=== PATIENT | male | born 1960 | race Caucasian/White ===

== ENCOUNTER 2016-07-26 18:35 | Emergency (ER) | payer BC ==
[2016-07-26 19:34] VITALS: BP 125/73
[2016-07-26] MEDS ORDERED: Albuterol 2.5 MG/3 ML NEB.SOL* (0.083%) INH ONE (20:08)
[2016-07-26] MEDS ORDERED: Ipratropium 0.5MG/2.5ML NEB* 0.5 MG/2.5 ML NEB.SOLN INH ONE (20:09)
--- NOTE | 2016-07-26 20:49 | UC ---
Respiratory Complaint HPI - HPI Summary HPI Summary: pt presents c/o worsening cough chest, congestion , sob, and wheezing. - History of Current Complaint Chief Complaint: UCRespiratory Stated Complaint: BRONCHITIS Time Seen by Provider: 07/26/16 19:54 Hx Obtained From: Patient Onset/Duration: Gradual Onset, Lasting Weeks Timing: Constant Severity Initially: Mild Severity Currently: Moderate Character: Cough: Nonproductive Aggravating Factors: Deep Breaths, Recumbent Position Alleviating Factors: Bronchodilator Associated Signs And Symptoms: Positive: Wheezing, URI - Allergies/Home Medications Allergies/Adverse Reactions: Allergies Allergy/AdvReac Type Severity Reaction Status Date / Time Doxycycline Allergy Rash And Verified 07/26/16 19:24 Itching Prednisone Allergy See Comment Verified 07/26/16 19:24 Codeine AdvReac Headache Verified 07/26/16 19:24 PMH/Surg Hx/FS Hx/Imm Hx Previously Healthy: Yes - Surgical History Surgical History: None - Family History Known Family History: Positive: Cardiac Disease - Social History Alcohol Use: None Substance Use Type: None Smoking Status (MU): Former Smoker When Did the Patient Quit Smoking/Using Tobacco: 1.5 YRS AGO - Immunization History Most Recent Influenza Vaccination: NONE Most Recent Tetanus Shot: UTD Most Recent Pneumonia Vaccination: N/A Review of Systems Constitutional: Fatigue Skin: Negative Eyes: Negative ENT: Other - nasal congestion Respiratory: Shortness Of Breath, Cough, Other - wheezing Cardiovascular: Negative Gastrointestinal: Negative Genitourinary: Negative Motor: Negative Neurovascular: Negative Musculoskeletal: Negative Neurological: Negative Psychological: Negative All Other Systems Reviewed And Are Negative: Yes Physical Exam Triage Information Reviewed: Yes Appearance: Ill-Appearing Vital Signs: Initial Vital Signs Temp 98.7 F 07/26/16 19:25 Pulse 91 07/26/16 19:25 Resp 16 07/26/16 19:25 BP 125/73 07/26/16 19:25 Pulse Ox 97 07/26/16 19:25 Eye Exam: Normal ENT Exam: Other ENT: Positive: Nasal congestion Neck exam: Normal Respiratory Exam: Other Respiratory: Positive: Decreased breath sounds - bilateral bases, Wheezing Cardiovascular Exam: Normal Musculoskeletal Exam: Normal Neurological Exam: Normal Psychological Exam: Normal Skin Exam: Normal UC Diagnostic Evaluation - Laboratory O2 Sat by Pulse Oximetry: 97 Respiratory Course/Dx - Differential Dx/Diagnosis Differential Diagnosis/HQI/PQRI: Asthma, Bronchitis Provider Diagnoses: bronchitis. asthma? COPD? Discharge - Discharge Plan Condition: Stable Disposition: HOME Prescriptions: Albuterol HFA INHALER* [Ventolin HFA Inhaler*] 2 puff INH Q4H PRN #1 mdi PRN Reason: Sob/Wheezing Azithromycin TAB* [Zithromax TAB (Z-DAMON) 250 mg #6 tabs] 250 mg PO DAILY #4 tab Montelukast Sodium TAB* [Singulair TAB*] 10 mg PO BEDTIME #30 tab Patient Education Materials: Acute Bronchitis (ED) Referrals: Hernan Lugo MD [Primary Care Provider] - 2 Days
--- NOTE | 2016-07-26 20:50 | RAD ---
Indication: Cough, shortness of breath. 2 views the chest including dual energy PA views demonstrate no mediastinal shift. Heart is of normal size and configuration. Lung robertson are clear. IMPRESSION: No active cardiopulmonary disease is noted.
[2016-07-26] MEDS ORDERED: Azithromycin TAB* 250 MG PO ONE (20:55)
[2016-07-26] MEDS ORDERED: Benzonatate CAP* 100 MG PO ONE (20:55)
== END 2016-07-26 21:15 | disposition home or self-care (01) ==
LOC: UCCORT 18:35
DX: J40 Bronchitis, not specified as acute or chronic (principal); Z88.1 Allergy status to other antibiotic agents; Z88.5 Allergy status to narcotic agent; Z88.8 Allergy status to other drugs, medicaments and biological substances; Z87.891 Personal history of nicotine dependence
CPT/HCPCS: 71020; 99213; A9270-GY; G0463; J7644

== ENCOUNTER 2017-03-14 12:57 | Emergency (ER) | payer BC ==
[2017-03-14 16:06] VITALS: BP 123/69
--- NOTE | 2017-03-14 16:11 | UC ---
HPI Febrile Illness - HPI Summary HPI Summary: sore throat, cough, high fever since last night. took advil today - History of Current Complaint Chief Complaint: UCRespiratory Time Seen by Provider: 03/14/17 15:58 Hx Obtained From: Patient Timing: Constant Initial Severity: Mild Current Severity: Moderate Associated Signs and Symptoms: Cough - Allergy/Home Medications Allergies/Adverse Reactions: Allergies Allergy/AdvReac Type Severity Reaction Status Date / Time Doxycycline Allergy Rash And Verified 03/14/17 15:58 Itching Prednisone Allergy See Comment Verified 03/14/17 15:58 Codeine AdvReac Headache Verified 03/14/17 15:58 PMH/Surg Hx/FS Hx/Imm Hx Previously Healthy: Yes - Surgical History Surgical History: None - Family History Known Family History: Positive: Cardiac Disease - Social History Alcohol Use: None Substance Use Type: None Smoking Status (MU): Former Smoker When Did the Patient Quit Smoking/Using Tobacco: 1.5 YRS AGO - Immunization History Most Recent Influenza Vaccination: NONE Most Recent Tetanus Shot: UTD Most Recent Pneumonia Vaccination: N/A Review of Systems Constitutional: Fever, Chills Skin: Negative Eyes: Negative ENT: Sore Throat - nonprod Respiratory: Cough Gastrointestinal: Negative Genitourinary: Negative Musculoskeletal: Myalgia - hx back pain Is Patient Immunocompromised?: No All Other Systems Reviewed And Are Negative: Yes Physical Exam Triage Information Reviewed: Yes Appearance: Ill-Appearing Vital Signs Reviewed: Yes ENT Exam: Normal Respiratory: Positive: Decreased breath sounds - in bases Cardiovascular Exam: Normal Neurological Exam: Normal Psychological Exam: Normal Skin Exam: Normal Course/Dx - Course Course Of Treatment: ibuprofen or tylenol every 4-6 hours prn pain/fever. rapid strep done - results negative but physical exam shows + exudate/raw throat. increase fluid intake daily to prevent dehydration from abx. f/u pcp 1 week if symptoms not resolving - Diagnoses Clinic Provider Diagnoses: strep throat Discharge - Discharge Plan Condition: Fair Disposition: HOME Prescriptions: Amoxicillin PO (*) [Amoxicillin 875 MG (*)] 875 mg PO BID 10 Days #20 tab Patient Education Materials: Sinusitis (ED), Strep Throat (ED) Referrals: Hernan Lugo MD [Primary Care Provider] - 1 Week
== END 2017-03-14 16:53 | disposition home or self-care (01) ==
LOC: UCCORT 12:57
DX: Z87.891 Personal history of nicotine dependence (principal); J02.0 Streptococcal pharyngitis
CPT/HCPCS: 87651; 99212; G0463

== ENCOUNTER 2018-05-12 15:56 | Emergency (ER) | payer BC ==
--- OUTSIDE RECORDS SUMMARY | 2018-05-12 16:07 | XMS REPORT | Continuity of Care Document ---
:1960 External Reference #:[id number] Author Name Tess Paige PA Address [address] [place] [address] Care Team Providers Name Role Phone Hernan Lugo MD Care Team Information Sanitation Associate Unavailable Hernan Lugo MD Primary Care Physician Unavailable Payers Date Identification Numbers Payment Provider Subscriber Effective: 2012 Policy Number: [id number] [facility] [employer] Yuli Islas PayID: [id number] [address] [address] [place] [address] Advance Directives Description No Information Available Problems Date Description Provider Status Onset: 12/26/2006 Pure hypercholesterolemia Hernan Lugo MD Active Onset: 12/22/2006 External hemorrhoids without Hernan Lugo MD Active complication Onset: 12/22/2006 Tobacco user Hernan Lugo MD Active Onset: 12/22/2006 FH: Diabetes mellitus Hernan Lugo MD Active Onset: 05/24/2017 Mild persistent asthma Hernan Lugo MD Active Onset: 05/06/2016 Mild intermittent asthma Hernan Lugo MD Active Onset: 09/03/2014 Intrinsic asthma without status Hernan Lugo MD Active asthmaticus Family History Date Family Member(s) Observation Comments Father DM2 Father Lung cancer D- 2013 Social History Type Date Description Comments Sex Unknown Marital Status 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 Tobacco Use Start: Unknown End: Patient is a former smoker 2 Packs Daily - smoked Unknown 2 -21/2 ppd for 30 years, quit Jan 2012; QUIT 2013 Smoking Status Reviewed: 02/22/11 Patient is a former smoker 2 Packs Daily - smoked 2 -21/2 ppd for 30 years, quit Jan 2012; QUIT 2013 Allergies, Adverse Reactions, Alerts Date Description Reaction Status Severity Comments 12/22/2006 Codeine Active Medications Medication Date Status Form Strength Qnty SIG Indications Ordering Provider Qvar Redihaler 05/02/ Active Aerosol 80mcg/Act 8.700 1 puff once J45.30 Cummins, 2019 gm a day joann Francis DO Tylenol 09/03/ Active Tablets 325mg 60tab 2 tabs 4 Digiovann 2015 s times daily a, as needed MD Hernan Proair HFA 06/14/ Active Aerosol 108(90Bas 25.5u inhale two J45.30 Digiovann 2015 e) nits puffs by a, mcg/Act mouth every Hernan, 3 hours as MD needed Ibuprofen 07/10/ Active Tablets 200mg 2 po tid prn Digiovann 2008 Hernan mcginnis MD Qvar 05/24/ Hx Aerosol 80mcg/Act 8.700 1 puff once J45.30 Digiovann 2018 - gm a day a, 05/02/ routinely Kali Becerra MD Doxycycline 07/08/ Hx Capsules 100mg 20cap 1 pill by Lucille Digiovann Monohydrate 2017 - s mouth twice a, 07/18/ a day with Salvador Becerra food for 10 MD days Azithromycin 06/22/ Hx Tablets 250mg 6tabs 2 tablets by Lucille Paige 2016 - mouth on day Tess, then 1 PA 2018 tablet on days 2-5 Hydrocortisone 12/22/ Hx Cream 2.5% 1unit apply pr qid Digiovann 2007 - s prn a, 02/03/ hemorrhoids Hernan Mobley MD Immunizations CPT Code Status Date Vaccine Lot # [id number] Given 09/03/2014 Tetanus And Diptheria Toxoids For Adult [id number] Use-preservative free [id number] Refused 05/24/2017 Afluria Imunization Vital Signs Date Vital Result Comment 05/02/2018 3:01pm Weight 183.00 lb Heart Rate 78 /min BP Systolic 138 mmHg BP Diastolic 78 mmHg Respiratory Rate 18 /min Height 70.5 inches 5'10.50" BMI (Body Mass Index) 25.9 kg/m2 05/24/2017 3:38pm Weight 183.00 lb Heart Rate 72 /min BP Systolic 120 mmHg BP Diastolic 80 mmHg Respiratory Rate 18 /min Height 70.5 inches 5'10.50" BMI (Body Mass Index) 25.9 kg/m2 06/22/2016 1:31pm Body Temperature 98.0 F Weight 195.00 lb Heart Rate 98 /min Respiratory Rate 20 /min Height 70 inches 5'10"06/22/16 O2 % BldC Oximetry 93 % BMI (Body Mass Index) 28.0 kg/m2 05/06/2016 2:20pm Weight 192.00 lb Heart Rate 74 /min BP Systolic 130 mmHg BP Diastolic 80 mmHg Respiratory Rate 18 /min Height 70 inches 5'10" BMI (Body Mass Index) 27.5 kg/m2 09/03/2014 2:24pm Weight 183.00 lb Heart Rate 84 /min BP Systolic 144 mmHg L/Reg BP Diastolic 90 mmHg L/Reg BP Systolic Recheck 118 mmHg L at rest BP Diastolic Recheck 80 mmHg L at rest Respiratory Rate 20 /min Height 70 inches 5'10" O2 % BldC Oximetry 92 % Ra BMI (Body Mass Index) 26.3 kg/m2 05/24/2013 2:40pm BP Systolic 140 mmHg BP Diastolic 84 mmHg 05/24/2013 2:40pm Body Temperature 98.2 F Weight 183.00 lb Heart Rate 84 /min BP Systolic 146 mmHg BP Diastolic 90 mmHg Respiratory Rate 18 /min Height 69.75 inches 5'9.75" O2 % BldC Oximetry 95 % 07/10/2008 2:23pm BP Systolic 128 mmHg L repeat BP Diastolic 84 mmHg L repeat 07/10/2008 2:23pm Weight 174.00 lb Heart Rate 84 /min BP Systolic 150 mmHg L/LG BP Diastolic 78 mmHg L/LG Respiratory Rate 10 /min Height 69.6 inches 5'9.60" 12/22/2006 9:30am BP Systolic 126 mmHg L seated BP Diastolic 80 mmHg L seated 12/22/2006 9:30am Weight 180.12 lb Heart Rate 82 /min BP Systolic 130 mmHg L/LG BP Diastolic 90 mmHg L/LG Respiratory Rate 12 /min Height 70.2 inches 5'10.20" Results Test Date Facility Test Result H/L Range Note Lipid 05/11/2016 [facility] Cholesterol 182 mg/dL < 200 1, 2 (315)- - Triglycerides 55 mg/dL <150 3 HDL Cholesterol 46 mg/dL >40 4 LDL-Cholesterol 125 mg/dL < 100 5 Basic (BMP) 05/11/2016 [facility] Glucose 105 mg/dL N 74-106 (315)- - BUN 22 mg/dL High 7-18 Creatinine 0.9 mg/dL N 0.6-1.3 Glom Filtration Rate, Estimate >60 mL/min >60 If >60 mL/min >60 6 BUN/Creat 24.4 ratio Sodium 140 mmol/L N 136-145 Potassium 4.7 mmol/L N 3.5-5.1 Chloride 101 mmol/L N 98-107 Carbon Dioxide 33 mmol/L High 21-32 Anion Gap 6 mEq/L Low 8-16 Calcium 8.8 mg/dL N 8.5-10.1 Laboratory test 08/14/2008 N2N/CCD Import Lyme AB/Total < 0.91 0.00- 0.90 7 finding Immunoglobulins index Lyme Disease Antibody,QT,Igm <0.91 index 0.00-0.90 8 Laboratory test finding 07/25/2008 N2N/CCD Import Anion Gap 8 mEq/L 8- 16 BUN 19 mg/dL 5-23 BUN/Creat 27.1 Calcium 9.4 mg/dL 8.5-10.1 Carbon Dioxide 34 mEq/L High 21-32 Chloride 100 mEq/L 98-107 Creatinine 0.7 mg/dL 0.5-1.4 Glom Filtration Rate, Estimate >60 mL/min >60 Glucose 104 mg/dL 76-115 9 If >60 mL/min >60 Potassium 5.0 mEq/L 3.5-5.1 Sodium 137 mEq/L 136-145 LDL Cholesterol Profile 07/25/2008 N2N/CCD Import Cholesterol 193 mg/dL 120-200 HDL Cholesterol 43 mg/dL 32-96 LDL-Cholesterol 137 mg/dL 62-185 Triglycerides 64 mg/dL 0-210 Laboratory test finding 12/22/2006 N2N/CCD Import Anion Gap 12 mmol/L 10 -20 10 BUN 16 mg/dL 9-21 BUN/CR Ratio 20.3 Ratio High 12-20 Calcium 9.8 mg/dL 8.7-10.5 Carbon Dioxide 30 mmol/L 22-30 Chloride 100 mmol/L 98-107 Cholesterol 255 mg/dL High 50-199 Creatinine, Serum 0.8 mg/dL 0.8-1.5 Glucose 96 mg/dL 75-110 HDL Cholesterol 42 mg/dL 29-67 Potassium 4.8 mmol/L 3.6-5.0 Sodium 138 mmol/L 137-145 1 E78.00 Z00.00 2 Reference Guidelines*: Desirable: ........... < 200 mg/dL Borderline High: ..... 200-239 mg/dL High: ................ >=240 mg/dL * The National Cholesterol Education Program (NCEP) 3 Reference Guidelines*: Normal: ............. < 150 mg/dL Borderline High: .... 150-199 mg/dL High: ............... 200-499 mg/dL Very High: .......... > 500 mg/dL * Source: National Cholesterol Education Program (NCEP) 4 Reference Guidelines*: Low HDL: ..... < 40 mg/dL Normal: ..... 40-60 mg/dL Desirable: ... > 60 mg/dL *The National Cholesterol Education Program(NCEP) 5 Reference Guidelines*: Optimal:........... <100 mg/dL Near Optimal....... 100-129 mg/dL Borderline High.... 130-159 mg/dL High............... 160-189 mg/dL Very High.......... >=190 mg/dL * Source: National Cholesterol Education Program (NCEP) 6 Note: Persistent reduction for 3 months or more in an eGFR <60 mL/min/1.73 m2 defines CKD. Patients with eGFR values >/=60 mL/min/1.73 m2 may also have CKD if evidence of persistent proteinuria is present. The original MDRD equation for estimated GFR is not valid for patients less than 18 years of age. Additional information may be found at www.kdoqi.org. 7 Negative <0.91 Equivocal 0.91 - 1.09 Positive >1.09 Note: The CDC currently advises that Western blot testing be performed following all equivocal or positive EIA results. Final diagnosis should include appropriate clinical findings and a positive EIA which is also positive by Western blot. 8 Negative <0.91 Equivocal 0.91 - 1.09 Positive >1.09 Note: IgM levels may peak at 3-6 weeks post infection, then gradually decline. FDA currently advises that Western Blot testing be performed following all equivocal or positive EIA results. Final diagnosis should include appropriate clinical findings and a positive EIA which is also positive by Western Blot. 9 Note: Persistent reduction for 3 months or more in an eGFR <60 mL/min/1.73 m2 defines CKD. Patients with eGFR values >/=60 mL/min/1.73 m2 may also have CKD if evidence of persistent proteinuria is present. The original MDRD equation for estimated GFR is not valid for patients less than 18 years of age. Additional information may be found at www.kdoqi.org. 10 12/27 LETTER + CHOL H/O'S REDO LIPIDS 6M Procedures Date Code Description Status 06/22/2016 52033 Measure Blood Oxygen Level Single Determination Completed 09/03/2014 20902 Visual Screening Test Completed 09/03/2014 49205 Screening Hearing Test Completed Encounters Type Date Location Provider Dx Diagnosis Office Visit 05/24/2017 [facility] Hernan Lugo Z00.00 Encntr for general 4:15p adult medical exam w/o abnormal findings J45.30 Mild persistent asthma, uncomplicated E78.00 Pure hypercholesterolemia, unspecified Z11.59 Encounter for screening for other viral diseases Z68.25 Body mass index (BMI) 25.0-25.9, adult Office Visit 06/22/2016 1:30p [facility] Tess Paige PA J22 Unspecified acute lower respiratory infection Office Visit 05/06/2016 3:00p [facility] Hernan Lugo Z00.00 Encntr for general adult medical exam w/o abnormal findings E78.00 Pure hypercholesterolemia, unspecified J45.20 Mild intermittent asthma, uncomplicated M77.12 Lateral epicondylitis, LEFT elbow Z68.27 Body mass index (BMI) 27.0-27.9, adult Z12.11 Encounter for screening for malignant neoplasm of colon Office Visit 09/03/2014 2:30p [facility] Hernan Lugo MD V70.0 Exam ( Adult) General Medical Routine AT [facility] 272.0 Hypercholesterolemia Pure 455.3 Hemorrhoids External W/O Complication V18.0 History Family Diabetes Mellitus V76.44 Screening For Malig Sean Prostate V76.51 Special Screening For Malignant Neoplasms Colon V06.5 Tetanus Diphtheria (DT) 493.10 Asthma Intrinsic Unspecified Plan of Treatment Future Appointment(s):05/25/2018 3:00 pm - Hernan Luog MD at [facility]2018 - Tess Paige, PAL03.113 Cellulitis of RIGHT upper limbComments: ResolvedMonitor for recurrence of symptomsFollow up:PrnJ45.30 Mild persistent asthma, uncomplicatedNew Medication:Qvar Redihaler 80 mcg/Act - 1 puff once a day routinelyComments:Qvar added by Dr. Melton at last visit - pt never started thisWill send scriptReviewed use/SEContinue proair prnConsider pulm referralCall with questions/fwzzguujK57.25 Body mass index (BMI) 25.0-25.9, adult
[2018-05-12 16:13] VITALS: BP 108/81
[2018-05-12] MEDS ORDERED: Albuterol/Ipratropium NEB.SOL* Albuterol 2.5 MG/Ipratropium 0.5 MG 3 ML INH ONE (16:34)
[2018-05-12 16:44] LABS: Influenza A Molecular NEGATIVE (Negative); Influenza B Molecular NEGATIVE (Negative)
--- NOTE | 2018-05-12 17:01 | UC ---
Respiratory Complaint HPI - HPI Summary HPI Summary: Fever, cough and sinus congestion since Wednesday. Has not been improving. Saw PMD last week who diagnosed him with an asthma flare, given QVAR but he felt it made him worse so he stopped taking it a couple days ago. - History of Current Complaint Chief Complaint: UCGeneralIllness Stated Complaint: FEVER,COUGH Time Seen by Provider: 05/12/18 16:06 Hx Obtained From: Patient Onset/Duration: Sudden Onset, Lasting Days Timing: Constant Severity Initially: Mild Severity Currently: Mild Pain Intensity: 0 Aggravating Factors: Exertion, Deep Breaths, Recumbent Position Alleviating Factors: Nothing Associated Signs And Symptoms: Positive: Wheezing, URI - Risk Factors Cardiac Risk Factors: Smoking - Allergies/Home Medications Allergies/Adverse Reactions: Allergies Allergy/AdvReac Type Severity Reaction Status Date / Time codeine Allergy Headache Verified 05/12/18 16:08 doxycycline Allergy Rash And Verified 05/12/18 16:08 Itching prednisone Allergy See Comment Verified 05/12/18 16:08 Home Medications: Home Medications Albuterol inh POWDER (NF) [Proair Respiclick] 1 puff INH TID PRN 05/12/18 [ History Confirmed 05/12/18] Beclomethasone 80 MCG MDI(NF) [Qvar 80 MCG MDI(NF)] 2 puff INH BID 05/12/18 [ History Confirmed 05/12/18] Ibuprofen TAB* [Advil TAB*] 400 mg PO Q6H PRN 05/12/18 [History Confirmed ] PMH/Surg Hx/FS Hx/Imm Hx Previously Healthy: Yes - Surgical History Surgical History: None - Family History Known Family History: Positive: Cardiac Disease - Social History Alcohol Use: None Substance Use Type: None Smoking Status (MU): Former Smoker When Did the Patient Quit Smoking/Using Tobacco: 1.5 YRS AGO - Immunization History Most Recent Influenza Vaccination: NONE Most Recent Tetanus Shot: UTD Most Recent Pneumonia Vaccination: N/A Review of Systems All Other Systems Reviewed And Are Negative: Yes Constitutional: Positive: Fever, Fatigue Skin: Positive: Negative Eyes: Positive: Negative ENT: Positive: Sore Throat, Nasal Discharge, Sinus Congestion Respiratory: Positive: Cough Cardiovascular: Positive: Negative Gastrointestinal: Positive: Negative Genitourinary: Positive: Negative Motor: Positive: Negative Neurovascular: Positive: Negative Musculoskeletal: Positive: Negative Neurological: Positive: Negative Psychological: Positive: Negative Is Patient Immunocompromised?: No Physical Exam Triage Information Reviewed: Yes Appearance: Well-Nourished, Ill-Appearing, Pain Distress Vital Signs: Initial Vital Signs Temp 98.1 F 05/12/18 16:09 Pulse 98 05/12/18 16:09 Resp 18 05/12/18 16:09 BP 108/81 05/12/18 16:09 Pulse Ox 95 05/12/18 16:09 Vital Signs Reviewed: Yes Eye Exam: Normal ENT: Positive: Pharyngeal erythema, Nasal congestion, TM bulging, Sinus tenderness Dental Exam: Normal Neck exam: Normal Neck: Positive: Supple, Nontender, No Lymphadenopathy Respiratory Exam: Normal Respiratory: Positive: Chest non-tender, Normal breath sounds, Decreased breath sounds - throughout, Wheezing, Inspiration Cardiovascular Exam: Normal Cardiovascular: Positive: RRR, No Murmur, Pulses Normal Abdominal Exam: Normal Bowel Sounds: Positive: Present Musculoskeletal Exam: Normal Neurological Exam: Normal Psychological Exam: Normal Skin Exam: Normal Respiratory Course/Dx - Course Course Of Treatment: hx obtained, exam performed ,meds reviewed, rapid flu was negative, neb treatement given., treated for bornchitis - Differential Dx/Diagnosis Differential Diagnosis/HQI/PQRI: Asthma, Bronchitis, Exacerbation Of COPD Provider Diagnosis: Tobacco abuse, Bronchitis Discharge - Sign-Out/Discharge Documenting (check all that apply): Patient Departure All imaging exams completed and their final reports reviewed: No Studies - Discharge Plan Condition: Stable Disposition: HOME Patient Education Materials: Acute Bronchitis (ED) Referrals: Hernan Lugo MD [Primary Care Provider] - Additional Instructions: 1. take the medication as prescribed. 2. COntinue with the QVAR. 3. Follow up if not improving. - Billing Disposition and Condition Condition: STABLE Disposition: Home
== END 2018-05-12 17:11 | disposition home or self-care (01) ==
LOC: UCCORT 15:56
DX: J45.909 Unspecified asthma, uncomplicated (principal); R09.81 Nasal congestion; R09.89 Other specified symptoms and signs involving the circulatory and respiratory systems; F17.200 Nicotine dependence, unspecified, uncomplicated; Z88.5 Allergy status to narcotic agent; Z88.1 Allergy status to other antibiotic agents; Z88.8 Allergy status to other drugs, medicaments and biological substances; Z87.891 Personal history of nicotine dependence
CPT/HCPCS: 99212; A9270-GY; G0463

== ENCOUNTER 2019-01-01 13:24 | Emergency (ER) | payer BC ==
[2019-01-01 14:31] VITALS: BP 130/69
--- NOTE | 2019-01-01 14:35 | UC ---
Respiratory Complaint HPI - HPI Summary HPI Summary: Ill for about one week. Pt says he did an "odd job" used a mold mask but he doesn't think it worked. Fever for 1 1/2 days but no longer. Pt is a smoker. History of asthma/COPD. - History of Current Complaint Chief Complaint: UCRespiratory Stated Complaint: COLD/COUGH Time Seen by Provider: 01/01/19 14:31 Hx Obtained From: Patient Onset/Duration: Gradual Onset, Lasting Days Timing: Intermittent Episodes Severity Initially: Mild Severity Currently: Mild Pain Intensity: 3 Character: Cough: Productive - Clear sputum Aggravating Factors: Nothing Alleviating Factors: Bronchodilator - Using his albuterol inhaler 2-3 times a day Associated Signs And Symptoms: Positive: Wheezing, URI, Nasal Congestion - Allergies/Home Medications Allergies/Adverse Reactions: Allergies Allergy/AdvReac Type Severity Reaction Status Date / Time codeine Allergy Headache Verified 01/01/19 14:24 doxycycline Allergy Rash And Verified 01/01/19 14:24 Itching prednisone Allergy Hyperactivity,Poor Verified 01/01/19 14:24 Attention,"Puts me right out on 4th base" Home Medications: Home Medications Albuterol HFA INHALER* [Ventolin HFA Inhaler*] 1 - 2 puff INH Q4H PRN 01/01/19 [ History Confirmed 01/01/19] Ibuprofen TAB* [Advil TAB*] 600 mg PO Q6H PRN 01/01/19 [History Confirmed ] PMH/Surg Hx/FS Hx/Imm Hx Previously Healthy: Yes Respiratory History: COPD, Asthma, Bronchitis - Surgical History Surgical History: Yes Surgery Procedure, Year, and Place: Tonsillectomy, 1970, [place] - Family History Known Family History: Positive: Cardiac Disease - Social History Occupation: Employed Part-time Alcohol Use: None Substance Use Type: None Smoking Status (MU): Heavy Every Day Tobacco Smoker Type: Cigarettes Amount Used/How Often: ~1/3 PPD Length of Time of Smoking/Using Tobacco: Since Age 31 (Quit for 10 Years) When Did the Patient Quit Smoking/Using Tobacco: 1.5 YRS AGO - Immunization History Most Recent Influenza Vaccination: NONE Most Recent Tetanus Shot: UTD Most Recent Pneumonia Vaccination: N/A Review of Systems All Other Systems Reviewed And Are Negative: Yes Constitutional: Positive: Fever ENT: Positive: Nasal Discharge, Sinus Congestion Respiratory: Positive: Cough, Other - Occasional wheezing. Is Patient Immunocompromised?: No Physical Exam Triage Information Reviewed: Yes Appearance: Well-Appearing, No Pain Distress, Well-Nourished Vital Signs: Initial Vital Signs Temp 98.9 F 01/01/19 14:20 Pulse 96 01/01/19 14:20 Resp 20 01/01/19 14:20 BP 130/69 01/01/19 14:20 Pulse Ox 91 01/01/19 14:20 Vital Signs Reviewed: Yes Eyes: Positive: Conjunctiva Clear ENT: Positive: Pharynx normal, Nasal congestion, Nasal drainage, TMs normal, Uvula midline Neck: Positive: Supple, Nontender, No Lymphadenopathy Respiratory: Positive: Lungs clear - Pt doesn't take great breaths but I don't believe he is mocing a lot of air, however he is in no respiratory distress and sitting comfortably, Normal breath sounds, No respiratory distress, No accessory muscle use Cardiovascular: Positive: RRR, No Murmur, Pulses Normal, Brisk Capillary Refill Musculoskeletal Exam: Normal Neurological Exam: Normal Psychological Exam: Normal Skin Exam: Normal Respiratory Course/Dx - Course Course Of Treatment: CXR: FINDINGS: CARDIOMEDIASTINAL SILHOUETTE: The cardiomediastinal silhouette is normal. SAMUEL: The samuel are normal. PLEURA: The costophrenic angles are sharp. No pleural abnormalities are noted. LUNG PARENCHYMA: There is hyperinflation with flattening of the diaphragm and expansion of the AP diameter of the chest. ABDOMEN: The upper abdomen is clear. There is no subphrenic gas. BONES AND SOFT TISSUES: No bone or soft tissue abnormalities are noted. OTHER: None. IMPRESSION: HYPERINFLATION, CONSISTENT WITH COPD. NO ACTIVE CARDIOPULMONARY DISEASE Duoneb: Pt felt like he was taking better breaths. He has more air movement throughout all lung [place]. He still has some mild wheezing. He refuses Prednisone. Will treat with a Z-prakash and continue his albuterol inhaler 2 puffs every 4 hours while awake and definite follow up with PCP if no improvement. Stop Smoking - Differential Dx/Diagnosis Provider Diagnosis: Bronchitis Discharge ED - Sign-Out/Discharge Documenting (check all that apply): Patient Departure All imaging exams completed and their final reports reviewed: Yes - Discharge Plan Condition: Fair Disposition: HOME Prescriptions: Albuterol HFA INHALER* [Ventolin HFA Inhaler*] 2 puff INH Q4H PRN 5 Days #1 mdi PRN Reason: Wheezing Azithromyxin PRAKASH (NF) [Z-Prakash (Zithromax) 250 mg tabs #6] 2 tab PO .TODAY, THEN 1 DAILY #6 tab Patient Education Materials: Acute Bronchitis (ED) Referrals: Hernan Lugo MD [Primary Care Provider] - Additional Instructions: Stop smoking, Use your albuterol inhaler 2 puffs every 4 hours as needed for wheezing or tight cough. Follow up with your primary care provider in 3-4 days if no improvement. Go to the ER if you have any worsening symptoms. - Billing Disposition and Condition Condition: FAIR Disposition: Home - Attestation Statements Provider Attestation: Per institutional requirements, I have reviewed the chart, however, I was not consulted specifically or made aware of this patient by the midlevel provider. I did not personally evaluate, interact with , or disposition this patient.
[2019-01-01] MEDS ORDERED: Albuterol/Ipratropium NEB.SOL* Albuterol 2.5 MG/Ipratropium 0.5 MG 3 ML INH ONE (14:47)
== END 2019-01-01 15:33 | disposition home or self-care (01) ==
LOC: UCCORT 13:24
DX: J44.9 Chronic obstructive pulmonary disease, unspecified (principal); R09.81 Nasal congestion; R09.89 Other specified symptoms and signs involving the circulatory and respiratory systems; F17.210 Nicotine dependence, cigarettes, uncomplicated; Z88.5 Allergy status to narcotic agent; Z79.899 Other long term (current) drug therapy; Z88.1 Allergy status to other antibiotic agents; Z88.8 Allergy status to other drugs, medicaments and biological substances
CPT/HCPCS: 71046; 99212; A9270-GY; G0463